=== PATIENT | male | born 1935 | race Caucasian/White ===

== ENCOUNTER 2016-11-11 08:39 | Emergency (ER) | payer MEDICARE, OTHER ==
[2016-11-11] MEDS ORDERED: IPRATROPIUM/ALBUTEROL SULFATE 3 ML AMPUL.NEB NEB ONE ×2 (08:47→08:50)
[2016-11-11] MEDS ORDERED: methylPREDNISolone SOD SUCC 125 MG/2 ML VIAL ONE (08:49)
[2016-11-11] MEDS ORDERED: methylPREDNISolone SOD SUCC 125 MG/2 ML VIAL IVP ONE (08:50)
[2016-11-11] MEDS ORDERED: 0.9 % SODIUM CHLORIDE 1,000 ML IV ONE ×2 (08:50→09:46)
[2016-11-11 09:09] LABS: MEAN CORPUSCULAR HEMOGLOBIN 30.3 pg (28.0-34.0); MEAN CORPUSCULAR VOLUME 97.4 fl (80.0-100.0)
--- NOTE | 2016-11-11 09:14 | ED Physician Documentation ---
General Adult - HISTORIAN Historian: patient - HPI Stated Complaint: sob Chief Complaint: General Adult Timing: still present Severity: moderate Further Comments: yes (Pt is an 81 yo male who presents with dyspnea that came on this am. Pt also c/o back pain. Pt has hx COPD, Pulm HTN, CHF, PE and other medicial problems.) - ROS CONST: weakness EYES/ENT: none CVS/RESP: shortness of breath GI/: none MS/SKIN/LYMPH: none - PAST HX Past History: other (HLD, COPD, Pulm HTN, CHF, Gout, low back pain, PE, Diverticulosis, anemia, gastric ulcer) Surgeries/Procedures: cardiac bypass Allergies/Adverse Reactions: Allergies Allergy/AdvReac Type Severity Reaction Status Date / Time No Known Allergies Allergy Verified 06/27/16 03:39 Home Medications: Ambulatory Orders Medication Instructions Recorded Colchicine [Colchicine] 0.6 mg PO DAILY 07/10/15 Allopurinol [Allopurinol] 300 mg PO D 12/04/15 Atorvastatin Calcium 40 mg PO D 12/04/15 Budesonide/Formoterol Fumarate 2 puff INH D 12/04/15 [Symbicort 160-4.5 Mcg Inhaler] Docusate Sodium [Colace] 100 mg PO BID 12/04/15 Furosemide [Furosemide] 60 mg PO BID 12/04/15 Pantoprazole Sodium [Protonix] 40 mg PO BID 12/04/15 Cetirizine HCl [Zyrtec] 10 mg PO D 06/27/16 Ferrous Gluconate [Iron] 325 mg PO D 06/27/16 Gabapentin [Neurontin] 300 mg PO Q8 06/27/16 Isosorbide Mononitrate [Imdur] 30 mg PO D 06/27/16 Metolazone [Zaroxolyn] 5 mg PO [id number] 06/27/16 Mometasone Furoate [Nasonex] 2 spray INH D 06/27/16 Potassium Chloride [Klor-Con M20] 20 meq PO D 06/27/16 Psyllium Seed [Metamucil] 1 pkt PO HS 06/27/16 Tiotropium [place] [Spiriva] 1 spray INH D 06/27/16 Ascorbic Acid [Vitamin C] 500 mg PO DAILY 11/11/16 Hyoscyamine Sulfate [Levbid] 0.375 mg PO BID 11/11/16 guaiFENesin [Robitussin] 10 ml PO Q6 11/11/16 - SOCIAL HX Smoking History: quit greater than 1 year - FAMILY HX Family History: No - VITAL SIGNS Vital Signs: Vital Signs Temp Pulse Resp BP Pulse Ox 124/59 06/27/16 07:13 - REVIEWED ASSESSMENTS Nursing Assessment Reviewed: Yes Vitals Reviewed: Yes Progress - Progress Progress: CXR: Examination of the chest in single portable AP view 11/11/2016 0911 hr with comparison to examination of 12/04/2015 demonstrates bibasilar infiltrates or atelectasis with left effusion blunting the costophrenic angle. Cardiovascular and mediastinal silhouettes are stable. The aorta is atherosclerotic. The patient's chin superimposes the upper mediastinum. Duoneb HFN x 2 Solu-medrol 125 mg IV SpO2 = 85% NRB CPAP SpO2 95% BP 85/55 NS 500 cc IVF bolus BP 97/60 -->BP 80/45 start dopamine drip for low bp 80/45, rate 10 mcg/kg/hr. BP improved 140/70. Decrease dopamine to 5 mcg/kg/hr. Transfer [facility]. Dr. Castro, pulmonary. - EKG/XRAY/CT EKG: rhythm (afib, ventricular rate=96; non-specific ST changes.) ED Results Lab/Radiology - Lab Results Lab Results: Lab Results 11/11/16 09:00 WBC 15.50 K/ul H K/ul (4.00-12.00) RBC 4.57 M/ul M/ul (3.90-5.20) Hgb 13.9 g/dL g/dL (12.0-18.0) Hct 44.5 % % (37.0-53.0) MCV 97.4 fl fl (80.0-100.0) MCH 30.3 pg pg (28.0-34.0) MCHC 31.1 g/dL g/dL (30.0-36.0) RDW 15.4 % H % (11.3-14.3) Plt Count 227 K/mm3 K/mm3 (130-400) - Orders Orders: ED Orders Category Date Time Status Continuous EKG monitoring Q30M Care 11/11/16 08:46 Active Continuous Pulse Oximetry Q30M Care 11/11/16 08:[address] Saline Lock/IV NOW Care 11/11/16 08:46 Active CHEST 1 VIEW [RAD] Stat Exams 11/11/16 08:46 Ordered CBC/PLATELET/DIFF Routine Lab 11/11/16 09:00 Completed CMP Routine Lab 11/11/16 09:00 Received CREATINE KINASE Routine Lab 11/11/16 09:00 Received TROPONIN I (cTnI) Stat Lab 11/11/16 09:00 Received Ipratropium/Albuterol Sulfate [Duoneb] Med 11/11/16 08:47 Discontinued 3 ml NEB .STK-MED ONE methylPREDNISolone SOD SUCC [Solu-MEDROL] Med 11/11/16 08:49 Discontinued 125 mg .ROUTE .STK-MED ONE Oxygen Daily Oxygen 11/11/16 09:00 Ordered EKG WITH COMPARISON Stat Ther 11/11/16 08:46 Ordered General Adult Physical Exam - PHYSICAL EXAM GENERAL APPEARANCE: moderate distress EENT: eye inspection normal, pharynx normal NECK: normal inspection, supple RESPIRATORY: wheezes, rales (b/l), other (decreased bs L vs R) CVS: reg rate & rhythm, heart sounds normal ABDOMEN: soft, no organomegaly, normal bowel sounds BACK: normal inspection, no CVA tenderness SKIN: warm/dry, normal color EXTREMITIES: non-tender, normal range of motion, edema NEURO: oriented X3, motor nml, sensation nml Discharge Clincal Impression: hypotension, elevated Pro-BNP, elevated D-dimer Dyspnea Qualifiers: Dyspnea type: unspecified Qualified Code(s): R06.00 - Dyspnea, unspecified Pneumonia Qualifiers: Pneumonia type: due to unspecified organism Laterality: bilateral Lung location : lower lobe of lung Qualified Code(s): J18.9 - Pneumonia, unspecified organism Referrals: Primary Doctor,No [Primary Care Provider] - Home Medications: Ambulatory Orders Colchicine [Colchicine] 0.6 mg PO DAILY 07/10/15 Allopurinol [Allopurinol] 300 mg PO D 12/04/15 Atorvastatin Calcium 40 mg PO D 12/04/15 Budesonide/Formoterol Fumarate [Symbicort 160-4.5 Mcg Inhaler] 2 puff INH D 01/13 Docusate Sodium [Colace] 100 mg PO BID 12/04/15 Furosemide [Furosemide] 60 mg PO BID 12/04/15 Pantoprazole Sodium [Protonix] 40 mg PO BID 12/04/15 Cetirizine HCl [Zyrtec] 10 mg PO D 06/27/16 Ferrous Gluconate [Iron] 325 mg PO D 06/27/16 Gabapentin [Neurontin] 300 mg PO Q8 06/27/16 Isosorbide Mononitrate [Imdur] 30 mg PO D 06/27/16 Metolazone [Zaroxolyn] 5 mg PO [id number] 06/27/16 Mometasone Furoate [Nasonex] 2 spray INH D 06/27/16 Potassium Chloride [Klor-Con M20] 20 meq PO D 06/27/16 Psyllium Seed [Metamucil] 1 pkt PO HS 06/27/16 Tiotropium [place] [Spiriva] 1 spray INH D 06/27/16 Ascorbic Acid [Vitamin C] 500 mg PO DAILY 11/11/16 Hyoscyamine Sulfate [Levbid] 0.375 mg PO BID 11/11/16 guaiFENesin [Robitussin] 10 ml PO Q6 11/11/16 Condition: Fair Disposition: 02 XFER SHT-TRM HOSP Decision to Admit: NO Decision Time: 09:55
[2016-11-11] MEDS ORDERED: LORazepam 2 MG/ML VIAL IVP ONE (09:17)
[2016-11-11] MEDS ORDERED: LORazepam 2 MG/ML VIAL ONE (09:17)
[2016-11-11 09:19] LABS: eGFR (African) 50; eGFR (Non-African) 41
[2016-11-11 09:25] LABS: MONOCYTES % 5 % (0-11); SEGMENTED NEUTROPHILS % 67 % (39-79); TOXIC GRANULATION PRESENT
--- NOTE | 2016-11-11 09:43 | Diagnostic Imaging Report ---
[facility] [address] [facility].[address] [address] Report Submission Date: Nov 11, 2016 9:28:04 AM CDT Patient Study Name: CHAVA GIL Date: Nov 11, 2016 9:11:46 AM CDT Modality Type: CR Gender: M Description: CHEST : 33 Institution: [facility] Physician JACQUELINE BROWN - ER Chest -one view CLINICAL HISTORY: Shortness of breath. FINDINGS: Examination of the chest in single portable AP view 11/11/2016 0911 hr with comparison to examination of 12/04/2015 demonstrates bibasilar infiltrates or atelectasis with left effusion blunting the costophrenic angle. Cardiovascular and mediastinal silhouettes are stable. The aorta is atherosclerotic. The patient's chin superimposes the upper mediastinum. IMPRESSION: Bibasilar atelectasis. Left effusion. Aortic atherosclerosis. Electronically signed on Nov 11, 2016 9:28:04 AM CDT by: Gulshan FOY
[2016-11-11] MEDS ORDERED: DOPAMINE HCL/D5W 400 MG/250 ML BAG IV ONE (09:48)
[2016-11-11] MEDS ORDERED: DOPAMINE HCL/D5W 250 ML IV ONE (09:55)
[2016-11-11 11:16] VITALS: BP 93/48
[2016-11-14 08:44] LABS: ABG PH 7.46 (7.35-7.45)
[2016-11-14 08:45] LABS: ABG BASE EXCESS 3.1 (-2 - +2)
== END 2016-11-11 10:00 | disposition short-term general hospital (02) ==
LOC: ED 08:39
DX: J18.9 Pneumonia, unspecified organism (principal); I95.9 Hypotension, unspecified
CPT/HCPCS: 36600; 51702; 71010; 80053; 82550; 82803; 83880; 84484; 85025; 85379; 85610; 85730; 93005; J1265; J2060; J2930; J7030; 96372; 99283; 99284; S1016

== ENCOUNTER 2017-03-30 08:38 | Outpatient (CLI) | payer MEDICARE, OTHER ==
--- NOTE | 2017-03-30 13:25 | Diagnostic Imaging Report ---
[facility] [address] [facility] [address] [address] Report Submission Date: Mar 30, 2017 10:43:01 AM CDT Patient Study Name: CHAVA GIL Date: Mar 30, 2017 9:01:36 AM CDT Modality Type: US Gender: M Description: US ABD LIMITED : 33 Institution: [facility] Physician: JALEN Ultrasound right upper quadrant Clinical history elevated liver function test Technique ultrasound and color Doppler was performed of right upper quadrant Findings: Liver as the upper limits of normal in size. Liver is diffusely echogenic. No masses are seen in the liver. Visualized pancreas and gallbladder and right kidney are within normal limits. The portal vein is patent. The right kidney measures 5.6 x 5.8 x 4.2 cm. The gallbladder wall thickness is 2.7 mm. The common bile duct measures 3 mm Impression: Fatty change in the liver. Normal gallbladder and bile ducts Electronically signed on Mar 30, 2017 10:43:01 AM CDT by: Evelio FOY
== END 2017-03-30 08:40 ==
LOC: RAD 08:38
PROVIDERS: ATTEND Family Medicine
DX: R94.5 Abnormal results of liver function studies (principal)
CPT/HCPCS: 36415; 76705; 80074

== ENCOUNTER 2018-11-14 20:39 | Outpatient (CLI) | payer MEDICARE, OTHER | END 2018-11-14 20:41 | LOC: LAB 20:39 | PROVIDERS: ATTEND Family Medicine | DX: K57.90 Diverticulosis of intestine, part unspecified, without perforation or abscess without bleeding (principal); J96.21 Acute and chronic respiratory failure with hypoxia; J44.9 Chronic obstructive pulmonary disease, unspecified; I50.9 Heart failure, unspecified; I65.23 Occlusion and stenosis of bilateral carotid arteries; E11.9 Type 2 diabetes mellitus without complications; I10 Essential (primary) hypertension; J18.9 Pneumonia, unspecified organism; I48.0 Paroxysmal atrial fibrillation; N18.3 Chronic kidney disease, stage 3 (moderate); M10.9 Gout, unspecified; K21.9 Gastro-esophageal reflux disease without esophagitis | CPT/HCPCS: 82270 ==